=== PATIENT | female | born 1970 | race Caucasian/White ===

== ENCOUNTER 2016-12-06 10:18 | Emergency (ER) | payer MEDICAID ==
[2016-12-06 10:34] VITALS: BMI 29.7
[2016-12-06 10:36] VITALS: TEMP 98.3
--- NOTE | 2016-12-06 11:24 | EDPRACDOC ---
- General Information Chief Complaint: Wound Stated Complaint: DOG BITE(WEEK AGO) Time Seen by Provider: 12/06/16 11:17 Information Source: Patient Mode Of Arrival: Car Home Medications: Home Medications Atorvastatin Calcium [Lipitor] 10 mg PO HS 07/03/14 Celecoxib [Celebrex] 200 mg PO DAILY 04/07/15 Hydrocodone Bit/Acetaminophen [[place] 5-325 Tablet] 1 tab PO Q12H PRN 04/07/15 Zolpidem Tartrate [Ambien] 10 mg PO HS 04/07/15 Bupropion HCl [Wellbutrin Xl] 150 mg PO QAM 12/14/15 Vortioxetine Hydrobromide [Brintellix] 5 mg PO DAILY 12/14/15 Amoxicillin/Potassium Clav [Augmentin 875-125 Tablet] 1 each PO BID #14 tablet 12/06/16 Oxycodone Immediate Release [Oxy-Ir] 5 mg PO Q6H PRN #20 tab 12/06/16 Allergies/Adverse Reactions: Allergies Allergy/AdvReac Type Severity Reaction Status Date / Time No Known Allergies Allergy Verified 12/06/16 10:35 - History of Present Illness Onset: 9 DAYS HPI: PT STATS BITTEN BY HER FRIEND'S DOG 9 DAYS AGO, BITE WOUND TO LEFT THUMB, PT STATES INCREASED SWELLING, PAIN, REDNESS, STATES SHE "NICKED IT" AND GOT SOME "PUSS" OUT, NO FEVER OR CHILLS, NO N/V/D, STATES PAIN WORSE WITH MOVING HER THUMB. Bite Location: Reports: Hand Bite Cause: Dog Symptoms: Reports: Pain, Redness, Swelling Bite Wound: Reports: Laceration Animal Immunization Status: Current Pain Severity: Severe Shortness of Breath: Severe Pruritus Severity: Severe Associated signs and symptoms: Reports: Pus, Swelling, Redness. Denies: Fever, Nausea, Vomiting ED Past Medical History - History Reviewed Yes Nurses notes reviewed and agree except as marked - Patient Medical History Cardiac History: Reports: Hypertension (NO MEDS) Psychological History: Denies: Depression Systemic History: Denies: Cancer Surgical History: Reports: Appendectomy - Social Medical History Smoking Status: Heavy tobacco smoker (5 or more cigarettes/day or daily pipe/ cigar) EDM Review of Systems - Review of Systems Constitutional: negative: Chills, Fever Gastrointestinal: negative: Nausea, Vomiting Genitourinary: negative: Dysuria, Frequency Neurological: negative: Dizziness, Headache, Numbness, Weakness Musculoskeletal: Hand Integumentary: Wound - Physical Exam Constitutional: Alert (Awake), No apparent distress Oriented to: Time Last recorded Vital Signs: Last Vital Signs Temp 98.3 F 12/06/16 10:34 Pulse 89 12/06/16 10:34 Resp 20 12/06/16 10:34 BP 179/98 12/06/16 10:34 Pulse Ox 98 12/06/16 10:34 Oxygen Pulse Oxygen Saturation 98 O2 Device Oxygen Flow Rate Fraction of Inspired Oxygen ( FIO2) - HEENT Head: Normal ( normocephalic) - Neurologic Memory Impaired: Normal Motor Function: Normal (Normal tone, Pulses 2+ No cyanosis or edema, FROM) Cranial Nerve: Normal (CN II-X11 intact sensation, strength 5/5) Cerebellar: Normal Mood Description: Normal Perception: Normal ED Bite Exam - Bite Exam Bite Location: Hand (BASE OF LEFT THUMB, PALMAR ASPECT: HEALING LACERATION WITH ERYTHEMA, TENDERNESS, FLUCTUANCE, SPONTANEOUSLY DRAINING SMALL AMOUNT OF PURULENT MATERIAL) Wound: Laceration Involvement: Immediate Area Pain Severity: Severe Involved Limb Distal/Sensory Function: Normal, Capillary Refill. negative: Motor Deficit, Pulse Deficit, Sensory Deficit ED Procedures - Incision and Drainage Informed of risks, benefits and alternatives described.: Yes Informed Consent Signed: Verbal Site: LEFT THUMB, BASE Indication: Painful Mass Anesthetic: Lidocaine, with Epi Prep: Betadine Blade Size: 11 Incised Site drained: Reports: Blood, Pus Incised site was: Irrigated, Not Packed with Iodoform - Differential Diagnosis Cellulitis, Other (ABSCESS) Decision Time to Discharge: 11:50 - Departure Disposition: Home Condition: Stable Final Diagnosis: Abscess of left thumb Dog bite of left thumb Qualifiers: Encounter type: initial encounter Qualified Code(s): S61.052A - Open bite of left thumb without damage to nail, initial encounter; W54.0XXA - Bitten by dog, initial encounter Instructions: Animal Bite (ED) Education/Counseling Given To: Patient Education/Counseling Given Regarding: Diagnosis, Treatment, Prognosis, Follow Up Referrals: Grady Zhang PA [Primary Care Provider] - 1-2 days Prescriptions: Amoxicillin/Potassium Clav [Augmentin 875-125 Tablet] 1 each PO BID #14 tablet Oxycodone Immediate Release [Oxy-Ir] 5 mg PO Q6H PRN #20 tab PRN Reason: Pain Additional Instructions: WASH DAILY WITH SOAP AND WATER, COVER WITH ANTIBIOTIC OINTMENT AND CLEAN BANDAGE , APPLY WARM COMPRESSES TO AFFECTED AREA 20 MINS AT A TIME 4 - 5 TIMES DAILY. RETURN TO THE ED FOR ANY WORSENING SYMPTOMS OR CONCERNS ESPECIALLY WORSENING REDNESS, DRAINAGE, RED STREAKS UP ARM OR FEVER.
[2016-12-06] MEDS ORDERED: AMOXICILLIN/CLAVULANATE 875 MG TAB PO ONE (11:25)
[2016-12-06] MEDS ORDERED: OXYCODONE HCL 5 MG TABLET PO ONE (11:25)
[2016-12-06] MEDS ORDERED: DIPHTHERIA AND TETANUS (ADULT) 0.5 ML SYR IM ONE (11:25)
[2016-12-06] MEDS ORDERED: Lidocaine 2%-Epinephrine 1:100,000 20ml vial INF ONE (11:25)
[2016-12-06 12:04] VITALS: BP 199/113; PULSE 83
== END 2016-12-06 12:08 | disposition home or self-care (01) ==
LOC: ED 10:18 → EDMC 12:08
DX: S61.052A Open bite of left thumb without damage to nail, initial encounter (principal); W54.0XXA Bitten by dog, initial encounter; Z23 Encounter for immunization
CPT/HCPCS: 26010; 90471; 90714; 99283; J3490